=== PATIENT | male | born 1985 | race Caucasian/White ===

== ENCOUNTER 2017-07-18 14:19 | Emergency (ER) | payer OTHER ==
[~2017-07-18] VITALS: Ht 167.6 cm; Wt 80.0 kg
[2017-07-18 14:22] VITALS: BP 127/73; PULSE 145; RESP 20; TEMP 98.1
[2017-07-18 14:49] VITALS: PULSE 128
[2017-07-18] MEDS ORDERED: ACETAMINOPHEN 325 MG TAB PO ONE (15:00)
[2017-07-18 15:10] LABS: BILIRUBIN, URINE NEG (NEG); BLOOD, URINE NEG (NEG); GLUCOSE,URINE NEG (NEG); KETONE, URINE NEG (NEG); NITRITE,URINE NEG (NEG); PH, URINE 5.5 (5.0-8.5); URINE COLOR LIGHT-YELLOW (YELLW/STRAW); URINE LEUKOCYTE ESTERASE NEG (NEG)
[2017-07-18 15:18] LABS: AUTOMATED NEUTROPHIL # 17.6 TH/MM3 (1.8-7.7); BASOPHIL # 0.1 TH/MM3 (0-0.2); BASOPHIL % 0.3 % (0.0-2.0); EOSINOPHIL # 0.1 TH/MM3 (0-0.4); EOSINOPHIL % 0.4 % (0.0-4.0); HEMATOCRIT 47.9 % (39.0-51.0); HEMOGLOBIN 16.5 GM/DL (13.0-17.0); LYMPH % 6.4 % (9.0-44.0); LYMPHOCYTE # 1.3 TH/MM3 (1.0-4.8); MEAN CELL VOLUME 93.7 FL (80.0-100.0); MEAN CORPUSCULAR HEMOGLOBIN 32.3 PG (27.0-34.0); MEAN CORPUSCULAR HGB CONC 34.4 % (32.0-36.0); MEAN PLATELET VOLUME 6.9 FL (7.0-11.0); MONO % 7.2 % (0.0-8.0); MONOCYTE # 1.5 TH/MM3 (0-0.9); NEUT % 85.7 % (16.0-70.0); PLATELET COUNT 365 TH/MM3 (150-450); RED BLOOD COUNT 5.11 MIL/MM3 (4.50-5.90); RED CELL DISTRIBUTION WIDTH 12.6 % (11.6-17.2); WHITE BLOOD COUNT 20.5 TH/MM3 (4.0-11.0)
[2017-07-18 15:35] LABS: ALBUMIN 4.6 GM/DL (3.4-5.0); ALT (GPT) 29 U/L (12-78); AST (GOT) 29 U/L (15-37); BICARBONATE 21.7 MEQ/L (21.0-32.0); BLOOD UREA NITROGEN 19 MG/DL (7-18); CALCIUM 9.3 MG/DL (8.5-10.1); CHLORIDE 105 MEQ/L (98-107); CREATININE 1.85 MG/DL (0.60-1.30); GLOMERULAR FILTRATION RATE 43 ML/MIN (>89); GLUCOSE,RANDOM 145 MG/DL (74-106); SODIUM (NA) 138 MEQ/L (136-145)
[2017-07-18 15:37] LABS: ALKALINE PHOSPHATASE 66 U/L (45-117); TOTAL BILIRUBIN ADULT 0.7 MG/DL (0.2-1.0); TOTAL PROTEIN 8.9 GM/DL (6.4-8.2)
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
--- NOTE | 2017-07-18 16:27 | RADRPT ---
EXAM DATE/TIME: 07/18/2017 16:01 [facility] COMPARISON: No previous studies available for comparison. INDICATIONS : Head pain due to fall. RADIATION DOSE: 59.55 CTDIvol (mGy) MEDICAL HISTORY : Hepatitis C. SURGICAL HISTORY : None. ENCOUNTER: Initial ACUITY: 1 day PAIN SCALE: 2/10 LOCATION: Bilateral cranial TECHNIQUE: Multiple contiguous axial images were obtained of the head. Using automated exposure control and adj ustment of the mA and/or kV according to patient size, radiation dose was kept as low as reasonably a chievable to obtain optimal diagnostic quality images. DICOM format image data is available electro nically for review and comparison. FINDINGS: CEREBRUM: The ventricles are normal for age. No evidence of midline shift, mass lesion, hemorrhage or acute in farction. No extra-axial fluid collections are seen. POSTERIOR FOSSA: The cerebellum and brainstem are intact. The 4th ventricle is midline. The cerebellopontine angle i s unremarkable. EXTRACRANIAL: The visualized portion of the orbits is intact. SKULL: The calvaria is intact. No evidence of skull fracture. CONCLUSION: No acute intracranial disease. Twin Page MD on July 18, 2017 at 16:23 Board Certified Radiologist. This report was verified electronically.
--- NOTE | 2017-07-18 16:32 | RADRPT ---
EXAM DATE/TIME: 07/18/2017 16:01 [facility] COMPARISON: No previous studies available for comparison. INDICATIONS : Neck pain due to fall. RADIATION DOSE: 15.19 CTDIvol (mGy) MEDICAL HISTORY : Hepatitis C. SURGICAL HISTORY : None. ENCOUNTER: Initial ACUITY: 1 day PAIN SCALE: 3/10 LOCATION: Bilateral neck region. TECHNIQUE: Volumetric scanning of the cervical spine was performed. Multiplanar reconstructions in the sagittal, coronal and oblique axial planes were performed. Using automated exposure control and adjustment o f the mA and/or kV according to patient size, radiation dose was kept as low as reasonably achievable to obtain optimal diagnostic quality images. DICOM format image data is available electronically f or review and comparison. FINDINGS: The sagittal reconstructions demonstrate normal alignment and normal prevertebral soft tissues. The d ens is intact and there is a normal atlantoaxial relationship. The axial images demonstrate that the vertebral bodies and posterior elements are intact. The soft ti ssues are within normal limits. There is no evidence of acute fracture or malalignment. CONCLUSION: Negative trauma CT. Anibal Leggett MD on July 18, 2017 at 16:27 Board Certified Radiologist. This report was verified electronically.
[2017-07-18] MEDS ORDERED: IODIXANOL 320 MG/ML 10 ML VIAL (for Rad CT) IVCONTRAST ONE (16:34)
--- NOTE | 2017-07-18 16:48 | RADRPT ---
EXAM DATE/TIME: 07/18/2017 16:08 [facility] COMPARISON: No previous studies available for comparison. INDICATIONS : Diffuse abdomen pain due to fall. IV CONTRAST: 42 cc Visipaque (iodixanol) IV ORAL CONTRAST: No oral contrast ingested. RADIATION DOSE: 8.68 CTDIvol (mGy) ; Combined studies - Thorax/Abdomen/Pelvis MEDICAL HISTORY : Hepatitis C. SURGICAL HISTORY : None. ENCOUNTER: Initial ACUITY: 1 day PAIN SCALE: 3/10 LOCATION: Bilateral upper quadrant TECHNIQUE: Volumetric scanning of the abdomen and pelvis was performed. Using automated exposure control and ad justment of the mA and/or kV according to patient size, radiation dose was kept as low as reasonably achievable to obtain optimal diagnostic quality images. DICOM format image data is available electro nically for review and comparison. FINDINGS: LOWER LUNGS: The visualized lower lungs are clear. LIVER: Homogeneous density without lesion. There is no dilation of the biliary tree. No calcified [place] es. SPLEEN: Normal size without lesion. PANCREAS: Within normal limits. KIDNEYS: Normal in size and shape. There is no mass, stone or hydronephrosis. ADRENAL GLANDS: Within normal limits. VASCULAR: There is no aortic aneurysm. BOWEL/MESENTERY: The stomach, small bowel, and colon demonstrate no acute abnormality. There is no free intraperitone al air or fluid. ABDOMINAL WALL: Within normal limits. RETROPERITONEUM: There is no lymphadenopathy. BLADDER: No wall thickening or mass. REPRODUCTIVE: Within normal limits. INGUINAL: There is no lymphadenopathy or hernia. MUSCULOSKELETAL: Within normal limits for patient age. CONCLUSION: Negative trauma CT Anibal Leggett MD on July 18, 2017 at 16:45 Board Certified Radiologist. This report was verified electronically.
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
[2017-07-18 19:37] VITALS: BP 128/74; PULSE 105; RESP 18; TEMP 98.1; O2SAT 98
[2017-07-19 02:20] VITALS: BP 107/64; PULSE 65; RESP 16; TEMP 98; O2SAT 99
[2017-07-19 06:11] VITALS: BP 114/69; PULSE 61; RESP 17; O2SAT 97
[2017-07-19 11:05] VITALS: BP 119/77; PULSE 109; RESP 18; O2SAT 98
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
== END 2017-07-19 11:57 | disposition home or self-care (01) ==
LOC: NEPJ 14:19
DX: F14.14 Cocaine abuse with cocaine-induced mood disorder (principal); B19.20 Unspecified viral hepatitis C without hepatic coma; F17.210 Nicotine dependence, cigarettes, uncomplicated; F12.90 Cannabis use, unspecified, uncomplicated; F15.90 Other stimulant use, unspecified, uncomplicated
CPT/HCPCS: 70450; 71260; 72125; 74177; 80053; 80307; 81001; 85025; 99284; Q9967

== ENCOUNTER 2017-10-05 19:19 | Emergency (ER) | payer SELFPAY ==
[2017-10-05 19:36] VITALS: RESP 16
[2017-10-05 19:45] VITALS: BP 122/82; PULSE 82; RESP 16; TEMP 98.7; O2SAT 98
[2017-10-05] MEDS ORDERED: DEXAMETHASONE SOD PHOS 4 MG/ML VIAL IV PUSH ONE (20:00)
[2017-10-05] MEDS ORDERED: CETI10CA3 PO (20:05)
[2017-10-05] MEDS ORDERED: PRED20 PO (20:05)
--- NOTE | 2017-10-05 20:05 | PD ---
HPI Chief Complaint: Allergic/Adverse Reaction Time Seen by Provider: 19:52 Travel History International Travel<30 days: No Contact w/Intl Traveler<30days: No Traveled to known affect area: No History of Present Illness HPI 31-year-old male complains of lip swelling. Patient has history of schizoaffective disorder. Patient was started on Ivenga by his psychiatrist 3 days ago. Patient started having lip swelling this afternoon. Patient denies any new exposures to food or drink. Patient denies any throat swelling. Patient denies any chest pain or shortness of breath. EMS was called. Patient was given Benadryl [address] IV [address] way to ED. Patient is feeling much better now. Patient states that the lip swelling got much better since then. PFSH Past Medical History Anxiety: Yes Diminished Hearing: No Hepatitis: Yes (C) Schizophrenia: Yes Social History Alcohol Use: No Tobacco Use: No Substance Use: No Allergies-Medications (Allergen,Severity, Reaction): Coded Allergies: paliperidone (Verified Allergy, Severe, 10/05/17) Reported Meds & Prescriptions Reported Meds & Active Scripts Active No Active Prescriptions or Reported Medications Review of Systems General / Constitutional: No: Fever Eyes: No: Visual changes HENT: No: Headaches Cardiovascular: No: Chest Pain or Discomfort Respiratory: No: Shortness of Breath Gastrointestinal: No: Abdominal Pain Genitourinary: No: Dysuria Musculoskeletal: No: Pain Skin: No Rash Neurologic: No: Weakness Psychiatric: No: Depression Endocrine: No: Polydipsia Hematologic/Lymphatic: No: Easy Bruising Physical Exam Narrative GENERAL: Well-nourished, well-developed patient. SKIN: Focused skin assessment warm/dry. HEAD: Normocephalic. EYES: No scleral icterus. No injection or drainage. Minimal edema of the lips. No throat edema. No stridor or wheezes. NECK: Supple, trachea midline. No JVD or lymphadenopathy. CARDIOVASCULAR: Regular rate and rhythm without murmurs, gallops, or rubs. RESPIRATORY: Breath sounds equal bilaterally. No accessory muscle use. GASTROINTESTINAL: Abdomen soft, non-tender, nondistended. MUSCULOSKELETAL: No cyanosis, or edema. BACK: Nontender without obvious deformity. No CVA tenderness. Neurologic exam normal. Data Data Last Documented VS Vital Signs Date Time Temp Pulse Resp B/P (MAP) Pulse Ox O2 Delivery O2 Flow Rate FiO2 10/05/17 19:48 16 98 Room Air 10/05/17 19:45 98.7 82 122/82 (95) Orders Orders Dexamethasone Inj (Decadron Inj) (10/05/17 20:00) MDM Medical Decision Making Medical Screen Exam Complete: Yes Emergency Medical Condition: Yes Differential Diagnosis Differential diagnosis including allergic reaction. Narrative Course 31-year-old male with left swelling. Patient started on schizoaffective medication Ivenga 3 days ago. EMS was called. Patient was given Benadryl 50 mg IV by EMS. Patient feeling much better now. Decadron 8 mg IV given. Diagnosis Primary Impression: Angioedema Qualified Codes: T78.3XXA - Angioneurotic edema, initial encounter Patient Instructions: General Instructions Additional Instructions: Take medications as directed. Follow-up with personal physician. Return if worse. Stop Ivenga Med/Other Pt SpecificInfo: Prescription(s) given Scripts Cetirizine HCl (Zyrtec) 10 Mg Capsule 1 TAB PO DAILY, #10 Prov: Junior Lees MD 10/05/17 Prednisone (Prednisone) 20 Mg Tab 20 MG PO BID, #10 TAB 0 Refills Prov: Junior Lees MD 10/05/17 Disposition: 01 DISCHARGE HOME Condition: Stable Junior Lees MD Oct 05, 2017 20:05
== END 2017-10-05 20:15 | disposition home or self-care (01) ==
LOC: NEPD 19:19
DX: T78.3XXA Angioneurotic edema, initial encounter (principal); F25.9 Schizoaffective disorder, unspecified; F41.9 Anxiety disorder, unspecified; B19.20 Unspecified viral hepatitis C without hepatic coma
CPT/HCPCS: 96374; 99284; J1100

== ENCOUNTER 2017-11-27 12:59 | Inpatient (IN) | payer OTHER ==
[~2017-11-27] VITALS: Ht 167.6 cm; Wt 74.1 kg
[~2017-11-27 12:59] MED LIST: CETI10CA3 PO; PRED20 PO
[2017-11-27 14:31] VITALS: BP 120/68; PULSE 101; RESP 18; TEMP 98
[2017-11-27] MEDS ORDERED: hydrOXYzine HCL 50 MG TAB PO PRN (14:45)
[2017-11-27] MEDS ORDERED: ALUMINUM/MAGNESIUM/SIMETH 30 ML CUP PO PRN (14:45)
[2017-11-27] MEDS ORDERED: diphenhydrAMINE HCL 50 MG CAP - HS PRN PO (14:45)
[2017-11-27] MEDS ORDERED: MAGNESIUM HYDROXIDE SUSP 30 ML CUP PO PRN (14:45)
[2017-11-27] MEDS ORDERED: diphenhydrAMINE HCL 50 MG/ML VIAL - HS PRN IM (14:45)
[2017-11-27] MEDS ORDERED: ACETAMINOPHEN 325 MG TAB PO PRN (14:45)
[2017-11-27] MEDS ORDERED: REMOVE OLD NICOTINE PATCH T-DERMAL SCH (21:00)
[2017-11-28 06:11] VITALS: BP 125/66; PULSE 86; RESP 16; TEMP 97.8; O2SAT 97
[2017-11-28] MEDS ORDERED: NICOTINE 21 MG/24 HR PATCH T-DERMAL SCH (09:00)
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
== END 2017-11-28 15:50 | disposition home or self-care (01) | DRG 897 ==
LOC: H270 13:16
PROVIDERS: ADMIT Psychiatry & Neurology Psychiatry; ATTEND Psychiatry & Neurology Psychiatry
DX: F19.10 Other psychoactive substance abuse, uncomplicated (principal); F25.9 Schizoaffective disorder, unspecified; F43.10 Post-traumatic stress disorder, unspecified